=== PATIENT | female | born 1960 | race Caucasian/White ===

== ENCOUNTER 2019-04-09 05:55 | Day surgery (SDC) | payer BC ==
[2019-04-05 10:09] LABS: CLARITY,URINE SLIGHTLY CLOUDY (Clear); COLOR,URINE YELLOW (Yellow); GLUCOSE, URINE NEGATIVE (Neg); KETONES,URINE NEGATIVE (Neg); LEUKOCYTE ESTERASE ,URINE NEGATIVE (Neg); NITRITES, URINE NEGATIVE (Neg); OCCULT BLOOD,URINE NEGATIVE (Neg); PH,URINE 8.5 (4.8-8.0); PROTEIN,URINE NEGATIVE (Neg); UROBILINOGEN,URINE 0.2 E.U/dL (0.2-1.0)
[2019-04-05 10:11] LABS: BASOPHILS # (AUTO) 0.1 X10'3 (0-0.2); EOSINOPHILS # (AUTO) 0.4 X10'3 (0-0.9); EOSINOPHILS % (AUTO) 7.5 % (0-6); LYMPHOCYTES # (AUTO) 1.6 X10'3 (1.1-4.8); LYMPHOCYTES % (AUTO) 30.5 % (21-51); MEAN CORPUSCULAR HEMOGLOBIN 32.4 PG (27.0-31.0); MEAN CORPUSCULAR HGB CONC 34.3 g/dL (33.0-36.5); MEAN CORPUSCULAR VOLUME 94.4 FL (78-98); MEAN PLATELET VOLUME 8.6 FL (7.4-10.4); MONOCYTES # (AUTO) 0.3 X10'3 (0-0.9); MONOCYTES % (AUTO) 6.5 % (2-12); NEUTROPHILS # (AUTO) 2.8 X10'3 (1.8-7.7); NEUTROPHILS % (AUTO) 54.5 % (42-75); PRE OP HEMOGLOBIN 14.1 g/dL (12.0-16.0); PRE OP PLATELET COUNT 215 X10'3 (140-440); RED BLOOD COUNT 4.34 X10'6 (4.20-5.60); RED CELL DISTRIBUTION WIDTH 12.8 % (11.5-14.5)
[2019-04-05 10:13] LABS: UA COLLECTION TYPE CLN CATCH MIDSTREAM
[2019-04-05 10:23] LABS: BACTERIA,URINE 1+ /HPF (Neg); RBC,URINE 0-2 /HPF (0-2); SQUAMOUS EPITHELIAL CELL,UR MANY /LPF (FEW); WBC,URINE 0-4 /HPF (0-4)
[2019-04-05 10:32] LABS: ALBUMIN 3.9 G/DL (3.4-5.0); ALBUMIN/GLOBULIN RATIO 1.3 (1.1-1.5); ALKALINE PHOSPHATASE 89 IU/L (46-116); BLOOD UREA NITROGEN 14 MG/DL (7-18); BUN/CREATININE RATIO 15.1 (6.6-38.0); CALCIUM 9.1 MG/DL (8.5-10.1); CHLORIDE 107 MMOL/L (99-107); CREATININE 0.93 MG/DL (0.40-0.90); PRE OP ALT 35 U/L (30-65); PRE OP ANION GAP 7 (8-16); PRE OP AST 20 U/L (10-37); PRE OP BILIRUB, TOTAL 0.8 MG/DL (0.0-1.0); PRE OP GLUCOSE 90 MG/DL (70-104); PRE OP POTASSIUM 4.1 MMOL/L (3.4-5.1); PRE OP SODIUM 143 MMOL/L (135-145); TOTAL CARBON DIOXIDE 29.1 MMOL/L (24-32); eGFR 62 ML/MIN
[2019-04-09] VITALS (12 sets, daily range): BP systolic 108–127; BP diastolic 63–83
[~2019-04-09] VITALS: Ht 162.6 cm; Wt 70.8 kg
[~2019-04-09 05:55] MED LIST: CHOL10002 PO; CYAN250014; DEXL60CA3 PO; FLAX100031 PO; FLUO-1 PO; LACT1CAP73 PO; LEVO50TA PO; MAGN400C PO; PREVCR VG; clindamycin-Cleocin 900mg/D5W 50 ML IV ONE; famotidine 20mg tablet PO ONE; ringers solution, lacted 1,000 ML IV SCH
[2019-04-09] MEDS ORDERED: BUPIVAcaine/PF 2.5 mg/ml (0.25%) 30ml vial ONE (07:56)
[2019-04-09] MEDS ORDERED: BUPIVACAINE liposomal/PF 13.3 MG/ML vial IM ONE (07:56)
[2019-04-09] MEDS ORDERED: sevoflurane 250ml liquid IH ONE (08:22)
[2019-04-09] MEDS ORDERED: fentaNYL/PF 50MCG/1 ML 2ML syringe ONE (08:36)
[2019-04-09] MEDS ORDERED: midazolam 2 mg/2 ml injection ONE (08:37)
[2019-04-09] MEDS ORDERED: ringers solution, lacted 1,000 ML IV SCH (08:56)
[2019-04-09] MEDS ORDERED: ondansetron/PF 4mg/2ml inj IV PRN (09:00)
[2019-04-09] MEDS ORDERED: meperidine/PF 25mg/ml syringe IV PRN ×3 (09:00)
[2019-04-09] MEDS ORDERED: proCHLORperazine 10 MG/2 ml inj IV PRN (09:00)
[2019-04-09] MEDS ORDERED: morphine 4 MG/ML inj SYRINge IV PRN ×2 (09:00)
[2019-04-09] MEDS ORDERED: LIDOcaine 2% (20mg/ml) 5ml vial ONE (09:09)
[2019-04-09] MEDS ORDERED: ondansetron/PF 4mg/2ml inj ONE (09:10)
[2019-04-09] MEDS ORDERED: propofol inj 20 ML IV ONE (09:10)
[2019-04-09] MEDS ORDERED: dexamethasone sod phosphate 4mg/ml inj. ONE (09:10)
--- NOTE | 2019-04-09 09:22 | NUR ---
Received from OR via [facility], accompanied by Anesthesiologist DR DALEY and report given by Anesthesiologist. PT DROWSY, DENIES PAIN, FOAM TAPE COVERING RECTAL AREA, CDI. Addendum: 04/09/19 at 0936 by Maryan Espinoza RN Amended: Links added.
[2019-04-09] MEDS ORDERED: ketorolac trometh. 30mg/ml inj. IV ONE (09:55)
[2019-04-09] MEDS ORDERED: acetaminophen 1,000mg/100ml IV 100 ML IV ONE (09:55)
--- NOTE | 2019-04-09 11:22 | NUR ---
PT AMBULATE TO BATHROOM FOR LARGE VOID, DRESSED, D/C INSTRUCTIONS GIVEN AND GONE OVER W/PT AND PTS , BOTH VERBALIZE UNDERSTANDING, PT D/CD TO HOME VIA W/C TO PRIVATE VEHICLE W/O INCIDENT. Addendum: 04/09/19 at 1149 by Maryan Espinoza RN Amended: Links added.
== END 2019-04-09 11:22 | disposition home or self-care (01) ==
LOC: PAS 05:55
PROVIDERS: ATTEND Surgery
DX: K64.3 Fourth degree hemorrhoids (principal); K64.4 Residual hemorrhoidal skin tags; F32.9 Major depressive disorder, single episode, unspecified; F41.9 Anxiety disorder, unspecified; Z88.0 Allergy status to penicillin; Z85.828 Personal history of other malignant neoplasm of skin; Z79.899 Other long term (current) drug therapy
CPT/HCPCS: 36415; 46255; 80053; 81001; 82948; 85025; 93005; A6224; C9290; J0131; J1100; J1885; J2001; J2175; J2250; J2405; J2704; J3010; J3490; A4215; A4618; A6449; A7000; J7120